=== PATIENT | female | born 1985 | race Caucasian/White ===

== ENCOUNTER → 2017-12-25 | Outpatient (CLI) | payer OTHER ==
[~2017-12-25] MED LIST: AMOX500T PO; CITA20TA4 PO; LUTETAB PO; MULTTAB67 PO
[2017-12-25 13:43] LABS: BACTERIA, URINE RARE /hpf; BILIRUBIN, URINE NEG (NEG); BLOOD, URINE NEG (NEG); GLUCOSE,URINE NEG (NEG); KETONE, URINE NEG (NEG); NITRITE,URINE NEG (NEG); SQUAMOUS EPITHELIAL CELL URINE 1 /hpf (0-5); URINE COLOR YELLOW (YELLW/STRAW); URINE LEUKOCYTE ESTERASE NEG (NEG)
[2017-12-25 14:00] LABS: AUTOMATED NEUTROPHIL # 4.5 TH/MM3 (1.8-7.7); BASOPHIL % 0.4 % (0.0-2.0); EOSINOPHIL # 0.2 TH/MM3 (0-0.4); EOSINOPHIL % 2.5 % (0.0-4.0); HEMATOCRIT 32.1 % (35.0-46.0); HEMOGLOBIN 10.9 GM/DL (11.6-15.3); LYMPH % 26.1 % (9.0-44.0); LYMPHOCYTE # 1.9 TH/MM3 (1.0-4.8); MEAN CELL VOLUME 84.1 FL (80.0-100.0); MEAN CORPUSCULAR HEMOGLOBIN 28.4 PG (27.0-34.0); MEAN CORPUSCULAR HGB CONC 33.8 % (32.0-36.0); MEAN PLATELET VOLUME 7.9 FL (7.0-11.0); MONO % 10.3 % (0.0-8.0); MONOCYTE # 0.8 TH/MM3 (0-0.9); NEUT % 60.7 % (16.0-70.0); PLATELET COUNT 277 TH/MM3 (150-450); RED BLOOD COUNT 3.82 MIL/MM3 (4.00-5.30); RED CELL DISTRIBUTION WIDTH 13.3 % (11.6-17.2); WHITE BLOOD COUNT 7.4 TH/MM3 (4.0-11.0)
--- NOTE | 2017-12-26 10:22 | MH ---
cc: Kodi Scott MD DATE OF ADMISSION: 12/25/2017 DATE OF ADMISSION: 12/27/2017 ADMITTING DIAGNOSIS: Menorrhagia, anemia with possible polyp. HISTORY OF PRESENT ILLNESS: The patient is a 32-year-old single, [place]ic, para 1-0-0-1 with a history of increasingly long menstrual cycles. Her cycle in October lasted for 3 weeks. Her laboratory studies showed a normal thyroid with anemia. Her ultrasound of the pelvis on 12/06/2017, showed a uterus that was slightly enlarged with endometrium of 15 mm and a possible polyp as well. The ovaries appeared normal. She is now admitted for surgical evaluation. PAST SURGICAL HISTORY: None. ALLERGIES: NONE. MEDICATIONS: Citalopram 20 mg daily. PAST MEDICAL HISTORY: History of intracranial hypertension, pseudotumor cerebri in 2012. TRANSFUSIONS: None. OBSTETRIC HISTORY: One vaginal delivery, 2003. 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 Alcohol: Occasional. Tobacco: None. Drugs: None. FAMILY HISTORY: Noncontributory. PHYSICAL EXAMINATION: GENERAL: Reveals an obese, [place]ic. VITAL SIGNS: Her weight is 337 pounds. Her height is 5 feet 9 inches. HEENT: Normal. CHEST: Clear. HEART: Regular rate. ABDOMEN: Benign. PELVIC: Vagina is normal. Cervix normal. Uterus is normal size, shape, anterior. No adnexal masses. ASSESSMENT AND PLAN: She is now admitted for hysteroscopy, dilatation and curettage. While in the office, I explained the procedures, the risk, benefits, complications and possible need for later treatment pending findings. The patient elected to proceed. MD WILLIAM Aquino/ALAN , 10:01 AM , 10:21 AM
--- NOTE | 2017-12-26 15:32 | EKG ---
Date Performed: 12/25/2017 Time Performed: 12:52:09 PTAGE: 32 years EKG: Sinus rhythm NORMAL ECG NO PREVIOUS TRACING DOCTOR: Kostas Jeter Interpretating Date/Time 12/26/2017 15:23:23
== END ==
LOC: CPRE 12:24
PROVIDERS: ATTEND Obstetrics & Gynecology
DX: Z01.812 Encounter for preprocedural laboratory examination (principal); Z01.810 Encounter for preprocedural cardiovascular examination; N92.0 Excessive and frequent menstruation with regular cycle; N84.0 Polyp of corpus uteri
CPT/HCPCS: 36415; 81001; 84702; 85025; 93005

== ENCOUNTER → 2017-12-27 | Day surgery (SDC) | payer OTHER ==
[~2017-12-27] VITALS: Ht 172.1 cm; Wt 154.5 kg
[~2017-12-27] MED LIST changes: +*morphine SULFATE 8 MG/ML PERIprocedure ONLY ONE; +ACETAMINOPHEN 1000 MG/100 ML 100 ML IV SCH; +CHLORHEXIDINE GLUCONATE 2 % 1 PACK (2 CLOTHS) TOPICAL PRN; +DEXAMETHASONE SOD PHOS 4 MG/ML VIAL IV ONE; +DO NOT ADM ANY ANTICOAGULANT DRUGS PRN; +KETOROLAC TROMETHAMINE 30 MG/ML (IVP) VIAL IV PUSH ONE; +LACTATED RINGER'S 1000 ML IV PRN; +LIDOCAINE HCL 1% PF 5 ML SYRINGE OTHER ONE; -LUTETAB PO; +METOCLOPRAMIDE HCL 10 MG/2 ML VIAL IV PRN; +METOPROLOL TARTRATE 25 MG TAB PO PRN; +MIDAZOLAM HCL 2 MG/2 ML VIAL ONE; +ONDANSETRON HCL 4 MG/2 ML VIAL IV ONE; +PHENYLEPH/NS 1000 MCG/10 ML SYR IV ONE; +POVIDONE IODINE 5% (ANTISEPSIS KIT) 4 APPLICATIONS EACH NARE PRN; +PROPOFOL 200 MG/20 ML AMP IV ONE; +SODIUM CHLORID 0.9% 500 ML IV PRN; +SUCCINYLCHOLINE CHLORIDE 100 MG/5 ML SYRINGE IV PUSH ONE; +ceFAZolin 1,000 MG/NS 100 ML IV SCH; +ePHEDrine/NS 25 MG/5 ML SYRINGE IV ONE
--- NOTE | 2017-12-27 16:13 | MP ---
cc: Kodi Scott MD DATE OF OPERATION: 12/27/2017 PREOPERATIVE DIAGNOSIS: Menorrhagia, possible polyp. POSTOPERATIVE DIAGNOSIS: Menorrhagia, possible polyp. PROCEDURE PERFORMED: Hysteroscopy, D and C. ANESTHESIA: General, ET. SURGEON: Kodi Scott MD RECREATION SUPERVISOR: Allie Del Toro. ESTIMATED BLOOD LOSS: About 20 mL FLUIDS: 1 liter crystalloid. OBJECTIVE FINDINGS: Following induction of adequate general endotracheal anesthesia, the patient was prepped and draped supine on the operating table in dorsal lithotomy position in the usual sterile fashion, with the bladder being drained via in and out catheterization. Exam under anesthesia revealed a normal size, shape, anterior uterus, no adnexal masses. Heavy weighted speculum was placed on the posterior fornix of the vagina. Anterior lip of the cervix was grasped with a single-tooth tenaculum. Cervix and uterus sounded to 9 cm. Cervix dilated with #20 Hanks dilator. Hysteroscope was passed and revealed a normal endocervix with thickened tissue. No distinct polyps. The scope was withdrawn. Endocervix curetting was obtained with a small serrated curette and the use of small sharp curette and the polyp forceps passed to pickup loose tissue and debris. The cervical tenaculum site was sutured with 3-0 chromic. All instruments were removed. All counts were correct. The patient's legs were taken down from the stirrups. She was awakened and taken to the recovery in good condition. Kodi Scott MD JAW/TL , 03:44 PM , 04:12 PM
[2017-12-27 17:45] VITALS: BP 141/83; PULSE 88; RESP 18; TEMP 98.4; O2SAT 99
== END | disposition home or self-care (01) ==
LOC: HSDC 12:32
PROVIDERS: ATTEND Obstetrics & Gynecology
DX: N92.0 Excessive and frequent menstruation with regular cycle (principal)
CPT/HCPCS: 00952; 58558; 88305; J0131; J0330; J0690; J1100; J1885; J2250; J2270; J2370; J2405; J3010; J7120